=== PATIENT | female | born 1955 | race Asian ===

== ENCOUNTER 2018-02-12 19:05 | Emergency (ER) | payer SELFPAY ==
[~2018-02-12] VITALS: Ht 165.1 cm; Wt 93.0 kg
[2018-02-12 19:11] VITALS: Ht 165.1 cm; Wt 93.0 kg
[2018-02-12 20:43] VITALS: BP 166/92
== END 2018-02-12 20:43 | disposition home or self-care (01) ==
LOC: ED 19:05
DX: I10 Essential (primary) hypertension (principal); K08.89 Other specified disorders of teeth and supporting structures; E11.9 Type 2 diabetes mellitus without complications; E78.00 Pure hypercholesterolemia, unspecified